=== PATIENT | female | born 1995 | race Two or more races ===

== ENCOUNTER 2021-07-05 10:12 | Emergency (ER) | payer OTHER ==
[~2021-07-05] VITALS: Ht 160 cm; Wt 59.1 kg
[2021-07-05 11:36] LABS: COVID AG,FIA SOURCE NASAL SWAB
[2021-07-05 13:19] VITALS: BP 108/72
== END 2021-07-05 13:21 | disposition home or self-care (01) ==
LOC: EMS 10:21
DX: Z11.1 Encounter for screening for respiratory tuberculosis (principal); Z20.822 Contact with and (suspected) exposure to COVID-19
CPT/HCPCS: 71045; 87426; 99284; U0003